=== PATIENT | male | born 2000 | race Two or more races ===

== ENCOUNTER 2020-01-05 01:01 | Emergency (ER) | payer SELFPAY ==
[~2020-01-05] VITALS: Ht 172.7 cm; Wt 114.3 kg
--- NOTE | 2020-01-05 01:12 | NUR ---
pt presented to er ambulatory with steady gait for wound check. a/ox4. speaks in complete sentences respirations even and unlabored no s/s cardiovascular distress denies n/v/d sr up for safety. bed locked, lowest position. instructed pt to call nurse for assistance. monitored accordingly will continue to monitor
--- NOTE | 2020-01-05 01:22 | NUR ---
DR. GOODRICH AT BEDSIDE FOR MSE
[2020-01-05] MEDS ORDERED: ONDANSETRON ODT 4 MG TAB.RAPDIS ONE (01:59)
[2020-01-05] MEDS ORDERED: SULFAMETH/TRIMETH 800/160 MG TABLET PO ONE (02:00)
[2020-01-05] MEDS ORDERED: ONDANSETRON ODT 4 MG TAB.RAPDIS SL ONE (02:00)
[2020-01-05] MEDS ORDERED: SULFAMETH/TRIMETH 800/160 MG TABLET ONE (02:00)
[2020-01-05] MEDS ORDERED: OXYCODONE/APAP 5-325 MG TABLET PO ONE (02:00)
[2020-01-05] MEDS ORDERED: OXYCODONE/APAP 5-325 MG TABLET ONE (02:00)
--- NOTE | 2020-01-05 02:08 | NUR ---
Patient discharged to home in stable condition. Written and verbal after care instructions given. Patient verbalizes understanding of instructions. Stressed follow up or return to ER for worsening s/s. A/Ox4 ambulates with steady gait no s/s of distress respirations even and unlabored all belongings with pt pt's family will take pt home instructed pt not to drive
[2020-01-05 02:13] VITALS: BP 132/76
[2020-01-05] MEDS ORDERED: LIDOCAINE 1%-EPI 1:100,000 20 ML VIAL IJ ONE (02:15)
[2020-01-05] MEDS ORDERED: SODIUM BICARBONATE 4.2 % (NEUT) 5 ML VIAL TP ONE (02:15)
== END 2020-01-05 02:08 | disposition home or self-care (01) ==
LOC: ER 01:07
DX: Z48.817 Encounter for surgical aftercare following surgery on the skin and subcutaneous tissue (principal); L05.01 Pilonidal cyst with abscess
CPT/HCPCS: 99284; J3490; A4217; A4663; Q0162